=== PATIENT | female | born 1975 | race African-American/Black ===

== ENCOUNTER 2018-02-18 18:04 | Inpatient (IN) | payer BC ==
--- NOTE | 2018-02-18 18:27 | PDOC ---
Rapid Medical Evaluation Time Seen by Provider: 02/18/18 18:22 Medical Evaluation: Allergies Allergy/AdvReac Type Severity Reaction Status Date / Time No Known Allergies Allergy Verified 02/18/18 18:22 02/18/18 18:22 42 year old female with history of uterine fibroids (s/p myomectomy, complicated by uterine aneurysm, required transfusion at that time) who went to Urgent Care today for five days of shortness of breath and coughing. CXR showed clear lungs. Hgb 7.3/26. No vaginal bleeding or blood in the stool. Referred to ED for possible transfusion. -Repeat CBC, CMP, PT/INR, T&S -To Main ED for further evaluation Discharge Disposition - Diagnosis Symptomatic anemia - Referrals - Patient Instructions - Post Discharge Activity
--- NOTE | 2018-02-18 18:53 | PDOC ---
History of Present Illness - General Chief Complaint: Revisit, Lab Variance Stated Complaint: BLOOD TRANSFUSION Time Seen by Provider: 02/18/18 18:22 - History of Present Illness Initial Comments: 02/18/18 18:53 Ms. Saucedo is a 42 yo female w/ pmh of fibroids (s/p myomectomy) who presents for evaluation of 5 day history of shortness of breath. Patient reports she was previously in her normal state of health however the last 5 days has become dyspneic on exertion. She presented to Urgent Care today and reportedly had an H /H of 7.3/26 and was directed here. Denies any vaginal bleeding or blood in stool. Patient had previously taken iron supplements however has stopped taking them electively. The patient denies chest pain, headache and dizziness. Denies fever, chills, nausea, vomit, diarrhea and constipation. Denies dysuria, frequency, urgency and hematuria. Allergies: NKDA Past History - Past Medical History Allergies/Adverse Reactions: Allergies Allergy/AdvReac Type Severity Reaction Status Date / Time No Known Allergies Allergy Verified 02/18/18 18:22 - Suicide/Smoking/Psychosocial Hx Smoking History: Never smoked Review of Systems - Review of Systems Comments:: 02/18/18 19:11 GENERAL/CONSTITUTIONAL: No fever or chills. No weakness. HEAD, EYES, EARS, NOSE AND THROAT: No change in vision. No ear pain or discharge. No sore throat. CARDIOVASCULAR: +Dyspnea on exertion as described. No chest pain RESPIRATORY: No cough, wheezing, or hemoptysis. GASTROINTESTINAL: No nausea, vomiting, diarrhea or constipation. GENITOURINARY: No dysuria, frequency, or change in urination. MUSCULOSKELETAL: No joint or muscle swelling or pain. No neck or back pain. SKIN: No rash NEUROLOGIC: No headache, vertigo, loss of consciousness, or change in strength/ sensation. ENDOCRINE: No increased thirst. No abnormal weight change HEMATOLOGIC/LYMPHATIC: No anemia, easy bleeding, or history of blood clots. ALLERGIC/IMMUNOLOGIC: No hives or skin allergy. *Physical Exam - Vital Signs Last Vital Signs Temp Pulse Resp BP Pulse Ox 98.7 F 94 H 19 138/91 98 02/18/18 18:22 02/18/18 18:22 02/18/18 18:22 02/18/18 18:22 02/18/18 18:22 - Physical Exam Comments: 02/18/18 19:11 GENERAL: Awake, alert, and fully oriented, in no acute distress HEAD: No signs of trauma, normocephalic, atraumatic EYES: PERRLA, EOMI, sclera anicteric, conjunctiva clear ENT: Auricles normal inspection, hearing grossly normal, nares patent, oropharynx clear without exudates. Moist mucosa NECK: Normal ROM, supple, no lymphadenopathy, JVD, or masses LUNGS: No distress, speaks full sentences, clear to auscultation bilaterally HEART: Regular rate and rhythm, normal S1 and S2, no murmurs, rubs or gallops, peripheral pulses normal and equal bilaterally. ABDOMEN: Soft, nontender, normoactive bowel sounds. No guarding, no rebound. No masses EXTREMITIES: Normal inspection, Normal range of motion, no edema. No clubbing or cyanosis. NEUROLOGICAL: Cranial nerves II through XII grossly intact. Normal speech, normal gait, no focal sensorimotor deficits SKIN: Warm, Dry, normal turgor, no rashes or lesions noted. ED Treatment Course - LABORATORY CBC & Chemistry Diagram: 02/18/18 18:50 02/18/18 19:55 Medical Decision Making - Medical Decision Making 02/18/18 20:55 Ms. Saucedo is a 42 yo female w/ pmh as described who presents for evaluation of dyspnea on exertion with prior dx today at urgent care of anemia. Anemia confirmed as below at 7.6/27.2. Given patient's symptomatic status will order 2 units prbc's and admit. 02/18/18 21:[address] Delgado (admits for PCP Dr. Lazara Crow) who would like patient to go to hospitalist for prompt evaluation. Hospitalist paged. Laboratory Results - last 24 hr 02/18/18 02/18/18 02/18/18 18:50 18:50 18:50 WBC 9.3 RBC 4.62 Hgb 7.6 L Hct 27.2 L MCV 58.8 L MCH 16.5 L MCHC 28.0 L RDW 21.0 H Plt Count 435 H MPV 9.4 Absolute Neuts (auto) 4.8 Neutrophils % 51.1 Lymphocytes % 33.7 Monocytes % 11.8 H Eosinophils % 2.3 Basophils % 1.1 Nucleated RBC % 0 PT with INR 13.00 INR 1.15 H Sodium Cancelled Potassium Cancelled Chloride Cancelled Carbon Dioxide Cancelled Anion Gap Cancelled BUN Cancelled Creatinine Cancelled Creat Clearance w eGFR Cancelled Random Glucose Cancelled Calcium Cancelled Total Bilirubin Cancelled AST Cancelled ALT Cancelled Alkaline Phosphatase Cancelled Creatine Kinase Troponin I Total Protein Cancelled Albumin Cancelled Blood Type Antibody Screen Crossmatch 02/18/18 02/18/18 02/18/18 18:50 19:21 19:25 WBC RBC Hgb Hct MCV MCH MCHC RDW Plt Count MPV Absolute Neuts (auto) Neutrophils % Lymphocytes % Monocytes % Eosinophils % Basophils % Nucleated RBC % PT with INR INR Sodium Potassium Chloride Carbon Dioxide Anion Gap BUN Creatinine Creat Clearance w eGFR Random Glucose Calcium Total Bilirubin AST ALT Alkaline Phosphatase Creatine Kinase Cancelled Troponin I Cancelled Total Protein Albumin Blood Type Cancelled A POSITIVE Antibody Screen Cancelled Negative Crossmatch See Detail 02/18/18 19:55 WBC RBC Hgb Hct MCV MCH MCHC RDW Plt Count MPV Absolute Neuts (auto) Neutrophils % Lymphocytes % Monocytes % Eosinophils % Basophils % Nucleated RBC % PT with INR INR Sodium 141 Potassium Chloride 108 H Carbon Dioxide 24 Anion Gap 9 BUN 11 Creatinine 0.8 Creat Clearance w eGFR > 60 Random Glucose 97 Calcium 8.6 Total Bilirubin 0.5 AST ALT Alkaline Phosphatase Creatine Kinase Troponin I Total Protein 7.8 Albumin 3.4 Blood Type Antibody Screen Crossmatch *DC/Admit/Observation/Transfer Diagnosis at time of Disposition: Symptomatic anemia - Discharge Dispostion Decision to Admit order: Yes - Referrals Referrals: Lazara Crow MD [Primary Care Provider] - - Patient Instructions - Post Discharge Activity
[2018-02-18 19:15] LABS: BASO % 1.1 % (0-2.0); EOS % 2.3 % (0-4.5); HEMATOCRIT 27.2 % (32.4-45.2); HEMOGLOBIN 7.6 GM/dL (10.7-15.3); LYMPH % 33.7 % (8-40); MEAN CELL VOLUME 58.8 fl (80-96); MEAN PLT VOLUME 9.4 fl (7.5-11.1); MONO % 11.8 % (3.8-10.2); NEUT % 51.1 % (42.8-82.8); PLATELET COUNT 435 K/MM3 (134-434); RBC 4.62 M/mm3 (3.60-5.2); WHITE BLOOD COUNT 9.3 K/mm3 (4.0-10.0)
[2018-02-18 19:32] LABS: MCH 16.5 pg (25.7-33.7)
[2018-02-18 19:47] LABS: INR 1.15 (0.82-1.09)
--- NOTE | 2018-02-18 20:06 | PDOC ---
Attending Attestation - Resident Resident Name: Silverio Blakely - ED Attending Attestation I have performed the following: I have examined & evaluated the patient, The case was reviewed & discussed with the resident, I agree w/resident's findings & plan, Exceptions are as noted - Physicial Exam PE: 02/18/18 20:55 *Physical Exam General Appearance: Yes: Appropriately Dressed. No: Apparent Distress, Intoxicated HEENT: positive: EOMI, ZAIRA, Normal ENT Inspection, Normal Voice, TMs Normal, Pharynx Normal. negative: Pale Conjunctivae, Photophobia, Scleral Icterus (R), Scleral Icterus (L) Neck: positive: Trachea midline, Normal Thyroid, Supple. negative: Tender, Rigid, Carotid bruit, Stridor, Lymphadenopathy (R), Lymphadenopathy (L), Thyromegaly Respiratory/Chest: positive: Lungs Clear, Normal Breath Sounds. negative: Chest Tender, Respiratory Distress, Accessory Muscle Use, Labored Respiration, RES, Crackles, Rales, Rhonchi, Stridor, Wheezing, Dullness Cardiovascular: positive: Regular Rhythm, Regular Rate, S1, S2. negative: Edema , JVD, Murmur, Bradycardia, Tachycardia Vascular Pulses: Dorsalis-Pedis (R): 2+, Doralis-Pedis (L): 2+ Gastrointestinal/Abdominal: positive: Normal Bowel Sounds, Flat, Soft. negative : Tender, Organomegaly, Pulsatile Mass, Increased Bowel Sounds, Decreased BS, Distended, Guarding, Rebound, Hernia, Hepatomegaly, Spleenomegaly Lymphatic: negative: Adenopathy, Tenderness Musculoskeletal: positive: Normal Inspection. negative: CVA Tenderness, Decreased Range of Motion Extremity: positive: Normal Capillary Refill, Normal Inspection, Normal Range of Motion, Pelvis Stable. negative: Tender, Pedal Edema, Swelling, Erythema Integumentary: positive: Normal Color, Dry, Warm. 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 negative: EOM Palsy, Facial Droop, Sensory Deficit - Medical Decision Making 02/18/18 20:55 Pt to be admitted to [facility] for transfusion. <Trevor Ingram - Last Filed: 02/18/18 20:55> - HPI HPI: 02/18/18 20:49 The patient is a 42 year old female, with a significant past medical history of fibroids (s/p myomectomy), who presents to the emergency department with, 5 days of dyspnea upon exertion. As per patient, she went to urgent care today where she was told benson H/H was 7.3/26 and was advised to report to the ED for further evaluation. She denies recent fevers, chills, headache or dizziness. She denies recent nausea, vomit, diarrhea or constipation. She denies any bloody stool. She denies recent dysuria, frequency, urgency or hematuria. She denies recent chest pain. Allergies: NKA Past surgical history: Myomectomy. Primary Care Physician: Dr. Crow <Angelika Mcnally - Last Filed: 02/18/18 22:00> Heart Score/ECG Review #1 02/18/18 21:58 EKG performed at: 18 February 2018 at 21:49:33 Vent Rate 89 bpm NJ interval 212 ms QRS duration 88 ms QT/QTc 396/481 ms P-R-T axes 70 72 57 Sinus rhythm with 1st degree AV block. Cannot rule out Anterior infarct, age undetermined. Abnormal ECG. <Angelika Mcnally - Last Filed: 02/18/18 22:00> Attestations - Attestations 02/18/18 20:49 Documentation prepared by Angelika Mcnally, acting as medical csr for Trevor Ingram DO. <Angelika Mcnally - Last Filed: 02/18/18 22:00>
[2018-02-18 20:31] LABS: ALBUMIN 3.4 g/dl (3.4-5.0); ANION GAP 9 (8-16); BILIRUBIN,TOTAL 0.5 mg/dL (0.2-1.0); BLOOD UREA NITROGEN 11 mg/dL (7-18); CALCIUM 8.6 mg/dL (8.5-10.1); CHLORIDE 108 mmol/L (98-107); CO2 24 mmol/L (21-32); CREATININE 0.8 mg/dL (0.55-1.02); GLUCOSE,RANDOM 97 mg/dL (74-106); SODIUM 141 mmol/L (136-145); TOT PROT 7.8 g/dl (6.4-8.2)
[2018-02-18 21:11] LABS: ALK PHOS 65 U/L (45-117); SGPT/ALT 67 U/L (12-78)
[2018-02-18 21:18] LABS: SGOT/AST 70 U/L (15-37)
[2018-02-18 21:40] LABS: ANISOCYTOSIS 2+
--- NOTE | 2018-02-18 22:43 | PN ---
Teaching Attending Note Name of Resident: Mono Lin ATTENDING PHYSICIAN STATEMENT I saw and evaluated the patient. I reviewed the resident's note and discussed the case with the resident. I agree with the resident's findings and plan as documented. SUBJECTIVE: Patient is a 42 year old woman with pmh of fibroids (s/p myomectomy) who presents for evaluation of five day history of shortness of breath. She reports dyspnea on exertion. She went to an Urgent Care Center and was found to have H/ H of 7.3/26 and was sent to the ER. She denies any vaginal bleeding, blood in stool or melena. Patient had previously taken iron supplements however has stopped taking them electively. She's never had an EGD/colonoscopy, is not on control pills and does is not trying to have children. LMP February 08, 2018. OBJECTIVE: Obese, and in no acute distress. Vital Signs Period Temp Pulse Resp BP Sys/Chauhan Pulse Ox Last 24 Hr 98.7 F 94 19 138/91 98 HEENT: No Jaundice, pallor; no eye redness or discharge, PERRLA, EOMI. Normocephalic, atraumatic. External ears are normal and hearing is grossly intact. No nasal discharge. Neck: Supple, nontender. No palpable adenopathy or thyromegaly. No JVD Chest: Good effort. Clear to auscultation and percussion. Heart: Regular. No S3, rub or murmur Abdomen: Not distended, soft, nontender and no HSM. No rebound or guarding. Normoactive bowel sounds. Ext: Peripheral pulses intact. No leg edema. Skin: Warm and dry. No petechiae, rash or ecchymosis. Neuro: Alert. Oriented x3. CN 2-12 grossly intact. Sensation grossly intact in all four extremities and DTR are symmetric. Home Medications Medication Instructions Recorded NK [No Known Home Medication] 02/18/18 Abnormal Lab Results 02/18/18 02/18/18 02/18/18 18:50 18:50 19:25 Hgb 7.6 L Hct 27.2 L MCV 58.8 L MCH 16.5 L MCHC 28.0 L RDW 21.0 H Plt Count 435 H Monocytes % 11.8 H INR 1.15 H Chloride AST Crossmatch See Detail 02/18/18 19:55 Hgb Hct MCV MCH MCHC RDW Plt Count Monocytes % INR Chloride 108 H AST 70 H Crossmatch ASSESSMENT AND PLAN: 1. Severe low MCV anemia - Features consistent with iron deficiency anemia likely due to menorrhagia associated with fibroids. While she has symptoms of anemia, the suddenness of SOB and cough 5 days ago compels us to rule out pulmonary embolism. Will get CTPA. She has no infiltrates on CXR. Her EKG shows nonspecific T wave inversion V1 and V2 - will get follow up EKG and troponin to rule out ACS and monitor her on telemetry. The ER has already started transfusion of PRBC. Subsequently she will need IV Venofer 500 mg x 2 doses and pelvic sonogram. 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 Stool sent for occult blood is pending and we will get iron studies. 2. DVT prophylaxis - Heparin 5000u sq tid 3. Advance directives - Full code
[2018-02-18] MEDS ORDERED: IRON SUCROSE INJECTION 500 MG in SODIUM CHLORIDE 225 ML IVPB ONE (23:37)
[2018-02-19 01:22] VITALS: BMI 39.4
--- NOTE | 2018-02-19 02:05 | HP ---
CHIEF COMPLAINT: SOB PCP: Dr. Crow HISTORY OF PRESENT ILLNESS: The patient is a 42 yo f w/ PMH Uterine fibroids s/p myomectomy x2 who presents to the ED c/o a 5 day history of dyspnea on exertion. The patient describes feeling short of breath when walking or when ascending stairs. She associates these symptoms with a nonproductive cough and palpitations on exertion. The patient went to an urgent care center, where she was found to have a Hb of 7.3 and sent to the ED. LMP 02/08, has been regular and of normal duration. Usually uses 4 heavy pads per day. The patient denies fever, chills, chest pain, abdominal pain, constipation, diarrhea, OCP use, estrogen supplementation, prolonged immobilization, vaginal bleeding, BRBPR. 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 Family History: Mother with aortic aneurysm Allergies No Known Allergies Allergy (Verified 02/18/18 18:22) HOME MEDICATIONS: Home Medications Medication Instructions Recorded NK [No Known Home Medication] 02/18/18 REVIEW OF SYSTEMS CONSTITUTIONAL: Absent: fever, chills, diaphoresis, generalized weakness, malaise, loss of appetite, weight change HEENT: Absent: rhinorrhea, nasal congestion, throat pain, throat swelling, difficulty swallowing, mouth swelling, ear pain, eye pain, visual changes CARDIOVASCULAR: Absent: chest pain, syncope, irregular heart rate, lightheadedness, peripheral edema RESPIRATORY: Absent: orthopnea, wheezing, stridor, hemoptysis GASTROINTESTINAL: Absent: abdominal pain, abdominal distension, nausea, vomiting, diarrhea, constipation, melena, hematochezia GENITOURINARY: Absent: dysuria, frequency, urgency, hesitancy, hematuria, flank pain, genital pain MUSCULOSKELETAL: Absent: myalgia, arthralgia, joint swelling, back pain, neck pain SKIN: Absent: rash, itching, pallor HEMATOLOGIC/IMMUNOLOGIC: Absent: easy bleeding, easy bruising, lymphadenopathy, frequent infections ENDOCRINE: Absent: unexplained weight gain, unexplained weight loss, heat intolerance, cold intolerance NEUROLOGIC: Absent: headache, focal weakness or paresthesias, dizziness, unsteady gait, seizure, mental status changes, bladder or bowel incontinence PSYCHIATRIC: Absent: anxiety, depression, suicidal or homicidal ideation, hallucinations. PHYSICAL EXAMINATION Vital Signs - 24 hr 02/18/18 02/18/18 02/18/18 18:22 21:34 23:20 Temperature 98.7 F Pulse Rate 94 H Pulse Rate [ 97 H Apical] Respiratory 19 18 Rate Blood Pressure 138/91 Blood Pressure 127/70 [Left Arm] O2 Sat by Pulse 98 96 99 Oximetry (%) 02/19/18 00:32 Temperature Pulse Rate Pulse Rate [ Apical] Respiratory 18 Rate Blood Pressure Blood Pressure [Left Arm] O2 Sat by Pulse 99 Oximetry (%) GENERAL: Awake, alert, and fully oriented, in no acute distress. HEAD: Normal with no signs of trauma. EYES: Pupils equal, round and reactive to light, extraocular movements intact, sclera anicteric, conjunctival pallor noted. No lid lag. EARS, NOSE, THROAT: oropharynx clear without exudates. Moist mucous membranes. Mucosal pallor noted NECK: Normal range of motion, supple without lymphadenopathy, JVD, or masses. LUNGS: Breath sounds equal, clear to auscultation bilaterally. No wheezes, and no crackles. No accessory muscle use. HEART: Regular rate and rhythm, normal S1 and S2 without murmur, rub or gallop. ABDOMEN: Soft, nontender, not distended, normoactive bowel sounds, no guarding, no rebound, no masses. No hepatomegaly or splenomegaly. LOWER EXTREMITIES: 2+ pulses, warm, well-perfused. No calf tenderness. No peripheral edema. NEUROLOGICAL: Cranial nerves II-X intact. Normal speech. strength 5/5 in all 4 extremities, sensation preserved SKIN: Warm, dry, normal turgor, no rashes or lesions noted, normal capillary refill. Laboratory Results - last 24 hr 02/18/18 02/18/18 02/18/18 18:50 18:50 18:50 WBC 9.3 RBC 4.62 Hgb 7.6 L Hct 27.2 L MCV 58.8 L MCH 16.5 L MCHC 28.0 L RDW 21.0 H Plt Count 435 H MPV 9.4 Absolute Neuts (auto) 4.8 Neutrophils % 51.1 Lymphocytes % 33.7 Monocytes % 11.8 H Eosinophils % 2.3 Basophils % 1.1 Nucleated RBC % 0 Hypochromia 3+ Anisocytosis 2+ Microcytosis 3+ PT with INR 13.00 INR 1.15 H Sodium Cancelled Potassium Cancelled Chloride Cancelled Carbon Dioxide Cancelled Anion Gap Cancelled BUN Cancelled Creatinine Cancelled Creat Clearance w eGFR Cancelled Random Glucose Cancelled Calcium Cancelled Total Bilirubin Cancelled AST Cancelled ALT Cancelled Alkaline Phosphatase Cancelled Creatine Kinase Troponin I Total Protein Cancelled Albumin Cancelled Serum , Qual Stool Occult Blood Blood Type Antibody Screen Crossmatch 02/18/18 02/18/18 02/18/18 18:50 19:21 19:25 WBC RBC Hgb Hct MCV MCH MCHC RDW Plt Count MPV Absolute Neuts (auto) Neutrophils % Lymphocytes % Monocytes % Eosinophils % Basophils % Nucleated RBC % Hypochromia Anisocytosis Microcytosis PT with INR INR Sodium Potassium Chloride Carbon Dioxide Anion Gap BUN Creatinine Creat Clearance w eGFR Random Glucose Calcium Total Bilirubin AST ALT Alkaline Phosphatase Creatine Kinase Cancelled Troponin I Cancelled Total Protein Albumin Serum , Qual Stool Occult Blood Blood Type Cancelled A POSITIVE Antibody Screen Cancelled Negative Crossmatch See Detail 02/18/18 02/18/18 02/18/18 19:55 21:00 22:17 WBC RBC Hgb Hct MCV MCH MCHC RDW Plt Count MPV Absolute Neuts (auto) Neutrophils % Lymphocytes % Monocytes % Eosinophils % Basophils % Nucleated RBC % Hypochromia Anisocytosis Microcytosis PT with INR INR Sodium 141 Potassium 5.0 Chloride 108 H Carbon Dioxide 24 Anion Gap 9 BUN 11 Creatinine 0.8 Creat Clearance w eGFR > 60 Random Glucose 97 Calcium 8.6 Total Bilirubin 0.5 AST 70 H ALT 67 Alkaline Phosphatase 65 Creatine Kinase 111 Troponin I < 0.02 Total Protein 7.8 Albumin 3.4 Serum , Qual Negative Stool Occult Blood Negative Blood Type Antibody Screen Crossmatch Radiology: CTA: bilateral pulmonary embolisms in the lower lobes and right upper lobe EKG: NSR @89, t wave inversions in v1 and v2; no old EKG to compare ASSESSMENT/PLAN: The patient is a 42 yo f w/ PMH uterine fibroids who was sent to the ED from urgent care for a hemoglobin of 7.2 found to have b/l PE. #SOB, palpitations and [place] likely 2/2 pulmonary embolism (unprovoked) -CTA positive -will administer Eliquis 10mg BID -Pulmonolgy to evaluate PE -Hematology/ Oncology for hypercoagulable workup #Anemia -physician gynecologist cosult for possible bleeding fibroids -GI consult for posible GIB -s/p 1 u prbc in ED -will admin 500mg iron IV #EKG changes -rpt EKG in AM -trop negative x1, will trend -echo in AM #FEN -no fluids indicated -lytes WNL, replete PRN -regular diet #Prophy -on eliquis for AC #Dispo -admit tele inpatient Visit type - Emergency Visit Emergency Visit: Yes ED Registration Date: 02/19/18 Care time: The patient presented to the Emergency Department on the above date and was hospitalized for further evaluation of their emergent condition. - New Patient This patient is new to me today: Yes Date on this admission: 02/19/18 - Critical Care Critical Care patient: No Hospitalist Screening - Colonoscopy Questionnaire Colonoscopy Questionnaire: Colonoscopy Questionnaire - Patient: 50 - 75 years old and never had a screening colonoscopy: No History of colon or rectal polyps, or CA: Unknown History of IBD, Crohn's disease or UC: Unknown History of abdominal radiation therapy as a child: Unknown - Relative: 1 with colon or rectal CA, or polyps at age 60 or younger: Unknown Colon or rectal CA diagnosed at age 45 or younger: Unknown Multiple relatives with colon or rectal CA: Unknown - Outcome: Screening Result: Negative Screen
[2018-02-19] MEDS: APIXABAN 5 MG TABLET PO SCH ×3 (03:16→21:53)
[2018-02-19 10:32] LABS: HEMATOCRIT 30.6 % (32.4-45.2); MCHC 29.3 g/dl (32.0-36.0); MEAN CELL VOLUME 60.1 fl (80-96); MEAN PLT VOLUME 8.7 fl (7.5-11.1); PLATELET COUNT 420 K/MM3 (134-434); RBC 5.09 M/mm3 (3.60-5.2); RDW 22.9 % (11.6-15.6); WHITE BLOOD COUNT 8.2 K/mm3 (4.0-10.0)
[2018-02-19 10:36] LABS: MCH 17.6 pg (25.7-33.7)
[2018-02-19 11:22] LABS: ALBUMIN 3.3 g/dl (3.4-5.0); ANION GAP 7 (8-16); BILIRUBIN,TOTAL 0.7 mg/dL (0.2-1.0); BLOOD UREA NITROGEN 8 mg/dL (7-18); CALCIUM 8.6 mg/dL (8.5-10.1); CHLORIDE 106 mmol/L (98-107); CO2 27 mmol/L (21-32); CREATININE 0.8 mg/dL (0.55-1.02); GLUCOSE,RANDOM 103 mg/dL (74-106); MAGNESIUM 2.1 mg/dL (1.8-2.4); PHOSPHOROUS 2.6 mg/dL (2.5-4.9); POTASSIUM 4.4 mmol/L (3.5-5.1); SGOT/AST 31 U/L (15-37); SGPT/ALT 57 U/L (12-78); SODIUM 140 mmol/L (136-145); TOT PROT 7.5 g/dl (6.4-8.2)
[2018-02-19 11:23] LABS: ALK PHOS 66 U/L (45-117)
--- NOTE | 2018-02-19 13:00 | CON.PULM ---
Consult Consult Specialty:: PULMONARY Referred by:: LEISA Mtz Reason for Consultation:: pulmonary embolism - History of Present Illness Chief Complaint: shortness of breath History of Present Illness: 42yo female with h/o uterine fibroids s/p myomectomy who was admitted with worsening shortness of breath x 1 week. Denies chest pain but with palpitations. Found to have bilateral pulmonary emboli on CTA imaging. She denies any prior history of VTE. No family history of clots. 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 No recent long car or plane rides. She does report hitting her right leg last week but no bruising. No history of miscarriages. - History Source History Provided By: Patient, Medical Record Limitations to Obtaining History: No Limitations - Past Medical History ...LMP: 02/08/18 ...: No - Alcohol/Substance Use Hx Alcohol Use: No - Smoking History Smoking history: Never smoked Home Medications - Allergies Allergies/Adverse Reactions: Allergies Allergy/AdvReac Type Severity Reaction Status Date / Time No Known Allergies Allergy Verified 02/18/18 18:22 - Home Medications Home Medications: Ambulatory Orders NK [No Known Home Medication] 02/18/18 Review of Systems - Review of Systems Constitutional: denies: Chills, Fever Eyes: denies: Recent Change in Vision HENT: denies: Nasal Congestion, Throat Pain Neck: denies: Stiffness, Tenderness Cardiovascular: reports: Palpitations, Shortness of Breath. denies: Chest Pain Respiratory: reports: SOB on Exertion. denies: Cough, Hemoptysis, Wheezing Gastrointestinal: denies: Abdominal Pain, Nausea, Vomiting Genitourinary: denies: Dysuria, Hematuria Neurological: denies: Dizziness, Headache Endocrine: denies: Unexplained Weight Loss Physical Exam Vital Sings: Vital Signs Temperature 98.3 F 02/19/18 08:09 Pulse Rate 80 02/19/18 08:09 Respiratory Rate 20 02/19/18 08:11 Blood Pressure 132/77 02/19/18 08:09 O2 Sat by Pulse Oximetry (%) 97 02/19/18 08:11 Constitutional: Yes: No Distress, Calm Eyes: Yes: Conjunctiva Clear, EOM Intact HENT: Yes: Atraumatic, Normocephalic Neck: Yes: Supple, Trachea Midline Cardiovascular: Yes: Regular Rate and Rhythm Respiratory: Yes: Regular, CTA Bilaterally ...Clubbing: No Gastrointestinal: Yes: Normal Bowel Sounds, Soft, Abdomen, Obese. No: Tenderness Edema: Yes (trace) Neurological: Yes: Alert, Oriented Psychiatric: Yes: Alert, Oriented Labs: CBC, BMP 02/19/18 10:20 02/19/18 10:20 Imaging - Results Cat Scan: Report Reviewed, Image Reviewed (bilateral pulmonary emboli) Problem List - Problems (1) Pulmonary emboli Code(s): I26.99 - OTHER PULMONARY EMBOLISM WITHOUT ACUTE COR PULMONALE (2) Symptomatic anemia Code(s): D64.9 - ANEMIA, UNSPECIFIED Assessment/Plan Acute Pulmonary Emboli Anemia - echocardiogram to evaluate right heart - lower extremity dopplers to r/o DVT/clot burden - O2 as needed - can start oral anticoagulation if right heart without evidence of strain - will need to anticoagulate for at least 6 months for unprovoked VTE Thank you for this consult Humble Fernandes MD
--- NOTE | 2018-02-19 15:06 | EKG ---
Test Reason : Blood Pressure : / mmHG Vent. Rate : 089 BPM Atrial Rate : 089 BPM P-R Int : 212 ms QRS Dur : 088 ms QT Int : 396 ms P-R-T Axes : 070 072 057 degrees QTc Int : 481 ms SINUS RHYTHM WITH 1ST DEGREE A-V BLOCK CANNOT RULE OUT ANTERIOR INFARCT , AGE UNDETERMINED ABNORMAL ECG WHEN COMPARED WITH ECG OF 31-JUL-2006 22:52, [place] INTERVAL HAS INCREASED Confirmed by MD Murali, Felice ([id number]) on 02/19/2018 3:06:12 PM Referred By: Confirmed By:Felice Carrion MD
--- NOTE | 2018-02-19 15:07 | CONSULT ---
Consult Consult Specialty:: Hematology - History of Present Illness History of Present Illness: Ms. Saucedo is a 42 yo female w/ pmh of fibroids (s/p myomectomy) who presents for evaluation of 5 day history of shortness of breath. Patient reports she was previously in her normal state of health however the last 5 days has become dyspneic on exertion. She presented to Urgent Care today and reportedly had an H /H of 7.3/26 and was directed here. Denies any vaginal bleeding or blood in stool. Patient had previously taken iron supplements however has stopped taking them electively. CTA with PE. US LE pending. Pt seen and examined. 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 No OCPS no hormonal therapy no prolonged travel no prolonged immobilization - History Source History Provided By: Patient, Family Member, Medical Record - Past Medical History ...LMP: 02/08/18 ...: No - Alcohol/Substance Use Hx Alcohol Use: No - Smoking History Smoking history: Never smoked Home Medications - Allergies Allergies/Adverse Reactions: Allergies Allergy/AdvReac Type Severity Reaction Status Date / Time No Known Allergies Allergy Verified 02/18/18 18:22 - Home Medications Home Medications: Ambulatory Orders NK [No Known Home Medication] 02/18/18 Physical Exam Vital Signs: Vital Signs Temperature 98.3 F 02/19/18 08:09 Pulse Rate 80 02/19/18 08:09 Respiratory Rate 20 02/19/18 08:11 Blood Pressure 132/77 02/19/18 08:09 O2 Sat by Pulse Oximetry (%) 97 02/19/18 08:11 Constitutional: Yes: Well Nourished, No Distress, Calm Eyes: Yes: Conjunctiva Clear, EOM Intact HENT: Yes: Atraumatic, Normocephalic Neck: Yes: Supple, Trachea Midline Cardiovascular: Yes: Regular Rate and Rhythm Respiratory: Yes: Regular, CTA Bilaterally Gastrointestinal: Yes: Normal Bowel Sounds, Soft, Abdomen, Obese Breast(s): Yes: WNL Musculoskeletal: Yes: WNL Extremities: Yes: WNL Labs: CBC, BMP 02/19/18 10:20 02/19/18 10:20 Imaging - Results Cat Scan: Report Reviewed, Image Reviewed Assessment/Plan PE: was started on eliquis c/w 10mg bid [id number] by 5mg bid etiology: seems unprovoked. US LE r/o DVT Advised pt for age appropriate ca screening. GI note reviewed, would at least wait for the "loading dose of Eliquis" is over prior to interruption of AC for procedures, unless HD instability/clinical evidence of bleeding. explained to the pt. d/w pt in detail. Anemia: MCV points chronicity Fe-def Repeat Venofer tomorrow Anemia w/u ensure stability of CBC
--- NOTE | 2018-02-19 15:53 | CON.GI ---
Consult Consult Specialty:: Dr. De Guzman for Dr. Wells Referred by:: Hospitalist Service Reason for Consultation:: Anemia - History of Present Illness Chief Complaint: I was short of breath and coughing History of Present Illness: 42F admitted through [facility] ER last night. Was sent by Urgent care when she was found to be anemic. She had a CTA performed in ER revealing B/L PE as well and started on Eliquis early this morning. She gives a history of chronic anemia and having been on TID iron supplement for multiple years. She has never had an upper endoscopy or colonoscopy. She was guaiac negative from a specimen sent from the ER. She denies focal GI complaints. There has been no rectal bleeding or melena / unintentional weight loss. Her last menstrual period was earlier this week and it usually lasts 6 days with passage of clots at times. she denies use of OCP's. She denies prolonged travel (flew to [place] recently , 45 min flight) There is no family history of colorectal cancer or other GI malignancy. She received 1 U PRBC. 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 Last in 2013) ...LMP: 02/08/18 ...: No - Alcohol/Substance Use Hx Alcohol Use: No - Smoking History Smoking history: Never smoked Home Medications - Allergies Allergies/Adverse Reactions: Allergies Allergy/AdvReac Type Severity Reaction Status Date / Time No Known Allergies Allergy Verified 02/18/18 18:22 - Home Medications Home Medications: Ambulatory Orders NK [No Known Home Medication] 02/18/18 Family Disease History - Family Disease History Family Disease History: Other: Father (Alive: healthy), Mother (: Aortic aneurysm age 62), Brother (4, healthy), Sister (2, healthy), Son (None), Daughter (None) Other Family History: No family history of colorectal cancer or other GI malignancy Review of Systems - Review of Systems Constitutional: denies: Chills, Fever, Malaise, Night Sweats, Unintentional Wgt. Loss Cardiovascular: denies: Chest Pain Respiratory: reports: Cough, SOB Hematology/Lymphatic: denies: Easily Bruised Physical Exam-GI Vital Signs: Vital Signs Temperature 98.3 F 02/19/18 08:09 Pulse Rate 80 02/19/18 08:09 Respiratory Rate 20 02/19/18 08:11 Blood Pressure 132/77 02/19/18 08:09 O2 Sat by Pulse Oximetry (%) 97 02/19/18 08:11 Constitutional: Yes: Calm Eyes: No: Sclera Icterus Cardiovascular: Yes: Regular Rate and Rhythm. No: Murmur Respiratory: Yes: CTA Bilaterally Gastrointestinal Inspection: No: Distention ...Auscultate: Yes: Normoactive Bowel Sounds ...Palpate: No: Hepatomegaly, Splenomegaly ...Percussion: No: Tympanitic ...Rectal Exam: Yes: Other (Prototype Technician present: no external lesions, no masses, guaiac negative light brown stool) Edema: No (No LE edema) Neurological: Yes: Alert, Oriented Labs: CBC, BMP 02/19/18 10:20 02/19/18 10:20 INR, PTT INR 1.15 (0.82-1.09) H 02/18/18 18:50 Problem List - Problems (1) Symptomatic anemia Assessment/Plan: Improved: received 1 U PRBC and receiving IV iron Being evaluated by heme. Hypercoag w/u Will defer to hematology. When anticoagulation can be held for procedures, I discussed EGD and colonoscopy with Ms. Saucedo for further intraluminal evluation to exclude GI source. Asymptomatic from GI standpoint and guaiac negative x 2 this admission. I did given Ms. Saucedo my card to arrange outpatient follow-up. Ordered abdominal US given elevated LFTs Code(s): D64.9 - ANEMIA, UNSPECIFIED
[2018-02-19 21:08] LABS: HEMATOCRIT 28.4 % (32.4-45.2); HEMOGLOBIN 8.2 GM/dL (10.7-15.3); MEAN CELL VOLUME 60.6 fl (80-96); MEAN PLT VOLUME 9.2 fl (7.5-11.1); PLATELET COUNT 421 K/MM3 (134-434); RBC 4.69 M/mm3 (3.60-5.2); RDW 22.9 % (11.6-15.6); WHITE BLOOD COUNT 9.8 K/mm3 (4.0-10.0)
[2018-02-19 21:12] LABS: MCH 17.6 pg (25.7-33.7)
[2018-02-20 06:06] LABS: SERUM IRON SATURATION 96 % (15-55); TOTAL IRON BINDING CAPACITY 588 ug/dL (250-450); UIBC 23 ug/dL (131-425)
--- NOTE | 2018-02-20 07:59 | HOSP ---
Physical Examination Vital Signs: Vital Signs Temperature 98.3 F 02/20/18 02:00 Pulse Rate 87 02/20/18 06:00 Respiratory Rate 20 02/20/18 06:00 Blood Pressure 131/85 02/20/18 06:00 O2 Sat by Pulse Oximetry (%) 97 02/19/18 20:15 Labs: CBC, BMP 02/19/18 20:25 02/19/18 10:20
[2018-02-20] MEDS: APIXABAN 5 MG TABLET PO SCH ×2 (09:36→21:12)
[2018-02-20] MEDS ORDERED: IRON SUCROSE INJECTION 300 MG in SODIUM CHLORIDE 235 ML IVPB ONE (10:00)
--- NOTE | 2018-02-20 11:36 | PN ---
Progress Note, Physician History of Present Illness: PULMONARY ALERT,FEELING BETTER,-SOB,-CP. LOWER EXT DUPLEX +DVT LLE - Current Medication List Current Medications: Active Medications Apixaban (Eliquis -) 10 mg PO BID MARIZOL Last Admin: 02/20/18 09:36 Dose: 10 mg - Objective Vital Signs: Vital Signs Temperature 98.5 F 02/20/18 07:46 Pulse Rate 90 02/20/18 07:46 Respiratory Rate 18 02/20/18 07:53 Blood Pressure 134/80 02/20/18 07:46 O2 Sat by Pulse Oximetry (%) 97 02/20/18 07:53 Constitutional: Yes: Well Nourished, Calm Eyes: Yes: WNL HENT: Yes: WNL Neck: Yes: WNL Cardiovascular: Yes: Pulse Irregular, S1, S2 Extremities: Yes: WNL Edema: No Labs: CBC, BMP Assessment/Plan Problem List - Problems (1) Pulmonary emboli Code(s): I26.99 - OTHER PULMONARY EMBOLISM WITHOUT ACUTE COR PULMONALE (2) Symptomatic anemia Code(s): D64.9 - ANEMIA, UNSPECIFIED 3 DVT LLE Assessment/Plan Acute Pulmonary Emboli LLE DVT Anemia - O2 as needed - eliquis - will need to anticoagulate for at least 6 months for unprovoked VTE - w/u for hypercoagulable stated as outpatient - monitor h+h - normal tranfusion threshold DR FORREST
--- NOTE | 2018-02-20 12:07 | PN ---
Progress Note (short form) - Note Progress Note: Subjective: The patient was seen at the bedside, she has no complaints at this time Left leg DVT identified Current Medications Generic Name Dose Route Start Last Admin Trade Name Ky PRN Reason Stop Dose Admin Apixaban 10 mg 02/19/18 01:45 02/20/18 09:36 Eliquis - PO 10 mg BID MARIZOL Administration Objective: Vital Signs Period Temp Pulse Resp BP Sys/Chauhan Pulse Ox Last 24 Hr 98.3 F-98.8 F 73-98 18-20 111-146/71-88 97-97 Physical Exam: General: NAD, A&Ox3 Lungs: CTA bilaterally Heart: RRR, S1S2 Abd: Soft, non-tender, non-distended. Normoactive bowel sounds Ext: Warm, well-perfused Neuro: CN 2-12 intact CBCD WBC 9.8 K/mm3 (4.0-10.0) 02/19/18 20:25 RBC 4.69 M/mm3 (3.60-5.2) 02/19/18 20:25 Hgb 8.2 GM/dL (10.7-15.3) L 02/19/18 20:25 Hct 28.4 % (32.4-45.2) L 02/19/18 20:25 MCV 60.6 fl (80-96) L 02/19/18 20:25 MCHC 29.0 g/dl (32.0-36.0) L 02/19/18 20:25 RDW 22.9 % (11.6-15.6) H 02/19/18 20:25 Plt Count 421 K/MM3 (134-434) 02/19/18 20:25 MPV 9.2 fl (7.5-11.1) 02/19/18 20:25 CMP Sodium 140 mmol/L (136-145) 02/19/18 10:20 Potassium 4.4 mmol/L (3.5-5.1) 02/19/18 10:20 Chloride 106 mmol/L (98-107) 02/19/18 10:20 Carbon Dioxide 27 mmol/L (21-32) 02/19/18 10:20 Anion Gap 7 (8-16) L 02/19/18 10:20 BUN 8 mg/dL (7-18) 02/19/18 10:20 Creatinine 0.8 mg/dL (0.55-1.02) 02/19/18 10:20 Creat Clearance w eGFR > 60 (>60) 02/19/18 10:20 Random Glucose 103 mg/dL (74-106) 02/19/18 10:20 Calcium 8.6 mg/dL (8.5-10.1) 02/19/18 10:20 Total Bilirubin 0.7 mg/dL (0.2-1.0) D 02/19/18 10:20 AST 31 U/L (15-37) 02/19/18 10:20 ALT 57 U/L (12-78) 02/19/18 10:20 Alkaline Phosphatase 66 U/L (45-117) 02/19/18 10:20 Total Protein 7.5 g/dl (6.4-8.2) 02/19/18 10:20 Albumin 3.3 g/dl (3.4-5.0) L 02/19/18 10:20 CARDIAC ENZYMES Creatine Kinase 111 IU/L (26-192) 02/18/18 19:55 Troponin I < 0.02 ng/ml (0.00-0.05) 02/19/18 10:20 Assessment: This is a 42 year old female with PMHx of uterine fibroids s/p myomectomy, who presented to the ED with [place] Plan: 1) Pulmonary embolism, LLE DVT - Hemodynamically stable - ECHO reviewed with Dr. Fernandes - Continue Eliquis 10mg po bid - Will need 6 months of anticoagulation for unprovoked DVT - Appreciate pulmonary consult 2) Symptomatic Anemia - Symptoms resolved, no longer SOB - Iron studies not accurate, they were drawn after IV venofer given - IV venofer x2 - Discussed with Dr. Yanes, Hct will need to be over 30-32 prior to discharge - Appreciate hematology consult - Appreciate GI consult: negative stool for occult blood, f/u outpatient 3) Uterine fibroids - F/u gathering machine setter consult 4) F/E/N: - Regular diet - Monitor electrolytes 5) Prophylaxis: - On Eliquis 6) Dispo: - Requires continued inpatient care CODE STATUS: FULL CODE Visit type - Emergency Visit Emergency Visit: Yes ED Registration Date: 02/19/18 Care time: The patient presented to the Emergency Department on the above date and was hospitalized for further evaluation of their emergent condition. - New Patient This patient is new to me today: No - Critical Care Critical Care patient: No
[2018-02-20 12:59] LABS: BASO % 0.8 % (0-2.0); EOS % 1.8 % (0-4.5); HEMATOCRIT 28.7 % (32.4-45.2); HEMOGLOBIN 8.3 GM/dL (10.7-15.3); LYMPH % 30.6 % (8-40); MCHC 28.8 g/dl (32.0-36.0); MEAN CELL VOLUME 60.7 fl (80-96); MEAN PLT VOLUME 8.5 fl (7.5-11.1); MONO % 9.6 % (3.8-10.2); NEUT % 57.2 % (42.8-82.8); PLATELET COUNT 385 K/MM3 (134-434); RBC 4.74 M/mm3 (3.60-5.2); RDW 22.5 % (11.6-15.6); WHITE BLOOD COUNT 12.5 K/mm3 (4.0-10.0)
[2018-02-20 13:04] LABS: MCH 17.5 pg (25.7-33.7)
--- NOTE | 2018-02-20 18:19 | PN ---
Progress Note (short form) - Note Progress Note: Constitutional: Yes: Well Nourished, No Distress, Calm Eyes: Yes: Conjunctiva Clear, EOM Intact HENT: Yes: Atraumatic, Normocephalic Neck: Yes: Supple, Trachea Midline Cardiovascular: Yes: Regular Rate and Rhythm Respiratory: Yes: Regular, CTA Bilaterally Gastrointestinal: Yes: Normal Bowel Sounds, Soft, Abdomen, Obese Breast(s): Yes: WNL Musculoskeletal: Yes: WNL Extremities: Yes: WNL Labs: Last Vital Signs Temp Pulse Resp BP Pulse Ox 98.3 F 92 H 18 149/87 97 02/20/18 14:00 02/20/18 14:00 02/20/18 07:53 02/20/18 14:00 02/20/18 07:53 CBC, BMP 02/20/18 12:40 02/19/18 10:20 Current Medications Generic Name Dose Route Start Last Admin Trade Name Freq PRN Reason Stop Dose Admin Apixaban 10 mg 02/19/18 01:45 02/20/18 09:36 Eliquis - PO 10 mg BID MARIZOL Administration DVT PE anemia fibroids On eliquis for CT a/p DEAF INTERPRETER f/u appreciated Hypercoag w/u as an OP
--- NOTE | 2018-02-20 18:26 | CON.OBG ---
Consult Consult Specialty:: Internal Medicine Referred by:: Dr. Mtz Reason for Consultation:: Fibroid uterus, menorrhagia - History of Present Illness Chief Complaint: 42yo with large fibroid uterus and severe anemia, admitted with bilateral pulmonary embolism History of Present Illness: Patient with a known history of uterine fibroids. She states prior h/o very heavy menstrual bleeding prior to her abdominal myomectomy in 2013. Since then her menses have significantly improved. She now reports regular menses q 1 month with bleeding lasting 5 days. The pt admits to occasional blood clots during her period and she routinely uses heavy pads. The pt states using 4-5 pads/day on heavy days. She has not seen a FIRE TECHNICIAN doctor for approximately 3-4 years. In 2013 the pt had abdominal myomectomy at [facility] (Dr. Murphy). 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 Since she was bleeding heavily at that time , she was transferred to [facility] where uterine aneurism (?artery) embolization was done. The pt was subsequently seen by Dr. Shafer ( server service assistant) because of attempts to conceive. She was treated with LUPRON x 6 months and underwent a hysteroscopic myomectomy at [facility]. She has had no treatment since. 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: Alzheimer's, CVA, Dementia, Migraine, Multiple Sclerosis, Peripheral Neuropathy, Parkinson's, Seizure, Syncope, TIA, Vertigo, Other Cardio/Vascular: Yes: Aneurysm (Uterine??) Pulmonary: Yes: Pulmonary Embolus Gastrointestinal: No: Ascites, Cancer, Constipation, Crohn's Disease, Diverticulitis, Diverticulosis, Esophageal Varices, Gastritis, GERD, GI Bleed, Hemorrhoids, Hiatal Hernia, Inflamatory Bowel Disease, Irritable Bowel Disease, Pancreatitis, Peptic Ulcer Disease, Ulcerative Colitis, Other Hepatobiliary: No: Cirrhosis, Cholelithiasis, Cholecystitis, Choledocholithiasis , Hepatitis A, Hepatitis B, Hepatitis C, Other Renal/: No: Renal Failure, Renal Inusuff, BPH, Cancer, Hematuria, Hemodialysis , Neurogenic Bladder, Renal Calculi, UTI, Other Reproductive: Yes: Fibroids, 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) ...LMP: 02/08/18 (Regular) ...: No ...: 0 ...Para: 0 Heme/Onc: Yes: Anemia Infectious Disease: No: AIDS, C-Diff, Herpes Zoster, HIV, MRSA, STD's, Tuberculosis, VREF, Other Psych: No: Addictions, Anxiety, Bipolar, Depression, Panic, Psychosis, Schizophrenia, Other Musculoskeletal: No: Bursitis, Chronic low back pain, Hemiparesis, Hemiplegia, Osteoarthritis, Paraplegia, Other Rheumatology: No: Fibromyalgia, Gout, Lupus, Rheumatoid Arthritis, Sarcoidosis, Vasculitis, Other ENT: No: Allergic Rhinitis, Sinusitis, Other Endocrine: No: [place]'s Disease, [place]'s Disease, Diabetes Insipidus, Diabetes Mellitus, Hyperparathyroidism, Hyperthyroidism, Hypothyroidism, Osteopenia, SIADH, Other Dermatology: No: Basal Cell, Cellulitis, Eczema, Melanoma, Psoriasis, Squamous Cell, Other - Past Surgical History Additional Surgical History: Laparotomy and Abdominal Myomectomy, Hysteroscopic myomectomy - Alcohol/Substance Use Hx Alcohol Use: No History of Substance Use: reports: None - Smoking History Smoking history: Never smoked - Social History Usual Living Arrangement: Alone ADL: Independent 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 History of Recent Travel: No Home Medications - Allergies Allergies/Adverse Reactions: Allergies Allergy/AdvReac Type Severity Reaction Status Date / Time No Known Allergies Allergy Verified 02/18/18 18:22 - Home Medications Home Medications: Ambulatory Orders NK [No Known Home Medication] 02/18/18 Family Disease History - Family Disease History Family Disease History: Other: Father (Alive: healthy), Mother (: Aortic aneurysm age 62), Brother (4, healthy), Sister (2, healthy), Son (None), Daughter (None) Other Family History: No family history of colorectal cancer or other GI malignancy Review of Systems - Review of Systems Constitutional: reports: No Symptoms Eyes: reports: No Symptoms HENT: reports: No Symptoms Neck: reports: No Symptoms Cardiovascular: reports: Shortness of Breath (improved) Respiratory: reports: SOB (improved) Gastrointestinal: reports: No Symptoms Genitourinary: reports: No Symptoms Breasts: reports: No Symptoms Reported Musculoskeletal: reports: No Symptoms Integumentary: reports: No Symptoms Neurological: reports: No Symptoms Endocrine: reports: No Symptoms Hematology/Lymphatic: reports: No Symptoms Psychiatric: reports: No Symptoms Pain Intensity: 0 Physical Exam-FIRE TECHNICIAN Vital Signs: Vital Signs Temperature 98.3 F 02/20/18 14:00 Pulse Rate 92 H 02/20/18 14:00 Respiratory Rate 18 02/20/18 07:53 Blood Pressure 149/87 02/20/18 14:00 O2 Sat by Pulse Oximetry (%) 97 02/20/18 07:53 Constitutional: Yes: Well Nourished, No Distress, Calm Eyes: Yes: WNL, Conjunctiva Clear, EOM Intact HENT: Yes: WNL, Atraumatic, Normocephalic Neck: Yes: WNL, Supple, Trachea Midline Cardiovascular: Yes: WNL, Regular Rate and Rhythm Respiratory: Yes: WNL, Regular, CTA Bilaterally Gastrointestinal: Yes: Normal Bowel Sounds, Soft, Abdomen, Obese, Palpable Mass (below umbilicus, c/w fibroid uterus) Renal/: Yes: WNL Pelvis: Yes: WNL External Genitalia: Yes: Normal Internal Exam Deferred: No Vaginal Exam: Yes: Normal Cervix: Yes: Normal Uterus: Yes: Enlarged, Firm, Mass (Very large and broad/bulky uterus extending to umbilicus c/w ~20-21 wk gestation-size, very mildly tender) Adnexa: Not Palpable: Left, Right Musculoskeletal: Yes: WNL Extremities: Yes: Other (small varicosities of LE's) Edema: Yes Edema: LLE: 1+, RLE: 1+ Integumentary: Yes: WNL Neurological: Yes: WNL, Alert, Oriented ...Motor Strength: WNL Psychiatric: Yes: WNL, Alert, Oriented Labs: CBC, BMP 02/20/18 12:40 02/19/18 10:20 Problem List - Problems (1) Fibroid uterus Assessment/Plan: Pt with very large fibroids and multiple attempts at treatment in the past. She has heavy menses due to fibroids and will eventually need a hysterectomy. However, she is asymptomatic at this time and no intervention is needed in view of her acute PE and anticoagulation. Pt was advised to f/u in the office. Code(s): D25.9 - LEIOMYOMA OF UTERUS, UNSPECIFIED Qualifiers: Uterine leiomyoma location: unspecified location Qualified Code(s): D25.9 - Leiomyoma of uterus, unspecified (2) Excessive menstruation Assessment/Plan: The pt describes regular menses, although moderately heavy. This is likely made worse by her large fibroids and might be a factor in her anemia. She is not bleeding now and no intervention is necessary at this time. There is a concern of possible heavy bleeding with anticoagulation when she gets her next period. We discussed precautions and that this is something that may need to be addressed in the future. I advised that the pt follow-u p in the office EMILY after discharge. I explained that there may be a role for endometrial ablation or uterine artery embolization to decrease the bleeding, if she has heavy menses and is not a candidate for hysterectomy. Code(s): N92.0 - EXCESSIVE AND FREQUENT MENSTRUATION WITH REGULAR CYCLE Qualifiers: Menorrahagia type: with regular cycle Qualified Code(s): N92.0 - Excessive and frequent menstruation with regular cycle (3) Pulmonary emboli Assessment/Plan: Manage per Pulmonary consult and IM Code(s): I26.99 - OTHER PULMONARY EMBOLISM WITHOUT ACUTE COR PULMONALE Qualifiers: Chronicity: acute (4) Symptomatic anemia Assessment/Plan: Transfuse to Hct >30-32%. Evaluation per Heme. Code(s): D64.9 - ANEMIA, UNSPECIFIED Assessment/Plan I discussed the A/P with Dr. Mtz. 90min with patient/exam, review of all records, communicating with PCP, consultation
[2018-02-21 06:22] LABS: BASO % 0.8 % (0-2.0); EOS % 2.3 % (0-4.5); HEMATOCRIT 28.1 % (32.4-45.2); HEMOGLOBIN 8.1 GM/dL (10.7-15.3); LYMPH % 27.2 % (8-40); MCHC 28.8 g/dl (32.0-36.0); MEAN PLT VOLUME 8.8 fl (7.5-11.1); MONO % 9.2 % (3.8-10.2); NEUT % 60.5 % (42.8-82.8); PLATELET COUNT 356 K/MM3 (134-434); RBC 4.52 M/mm3 (3.60-5.2); RDW 23.1 % (11.6-15.6)
[2018-02-21 06:43] LABS: MCH 17.9 pg (25.7-33.7)
[2018-02-21] MEDS: APIXABAN 5 MG TABLET PO SCH ×2 (09:31→21:43)
--- NOTE | 2018-02-21 12:40 | PN ---
GI Progress Note Subjective: No acute events No abdominal pain Abd US reveals fatty infiltration of the liver Evaluated by underground utility locator - Objective Vital Signs: Vital Signs Temperature 98.0 F 02/21/18 08:18 Pulse Rate 74 02/21/18 08:18 Respiratory Rate 18 02/21/18 08:18 Blood Pressure 123/67 02/21/18 08:18 O2 Sat by Pulse Oximetry (%) 96 02/21/18 08:17 Constitutional: Calm Cardiovascular: Yes: Regular Rate and Rhythm Respiratory: No: CTA Bilaterally Gastrointestinal Inspection: No: Distention ...Auscultate: Yes: Normoactive Bowel Sounds ...Palpate: No: Hepatomegaly, Splenomegaly, Tenderness Edema: No (No LE edema) Labs: CBC, BMP 02/21/18 05:30 02/19/18 10:20 INR, PTT INR 1.15 (0.82-1.09) H 02/18/18 18:50 Problem List - Problems (1) Symptomatic anemia Assessment/Plan: No overt history of or occult evidence of GI bleed When A/C can be held EGD and colonoscopy can be performed for further evaluation Check Celiac serologies Code(s): D64.9 - ANEMIA, UNSPECIFIED
--- NOTE | 2018-02-21 13:03 | PN ---
Progress Note (short form) - Note Progress Note: PULMONARY States breathing is better. No chest pain or palpitations. Vital Signs Period Temp Pulse Resp BP Sys/Chauhan Pulse Ox Last 24 Hr 98.0 F-99.9 F 71-92 18-20 118-149/63-87 96-96 Gen: NAD at rest Heart: RRR Lung: decreased breath sounds at the bases Abd: soft, nontender Ext: no edema CBC, BMP 02/21/18 05:30 02/19/18 10:20 Active Medications Apixaban (Eliquis -) 10 mg PO BID MARIZOL Last Admin: 02/21/18 09:31 Dose: 10 mg Acute Pulmonary Emboli LLE DVT Fibroid Uterus Anemia Elevated LFTs - continue anticoagulation for at least 6 months for unprovoked VTE Problem List - Problems (1) Pulmonary emboli Code(s): I26.99 - OTHER PULMONARY EMBOLISM WITHOUT ACUTE COR PULMONALE Qualifiers: Chronicity: acute (2) Symptomatic anemia Code(s): D64.9 - ANEMIA, UNSPECIFIED
--- NOTE | 2018-02-21 14:00 | PN ---
Physical Exam: SUBJECTIVE: Patient seen and examined at bedside. Feels well. No calf pain. No SOB. No chest pain. OBJECTIVE: Vital Signs Period Temp Pulse Resp BP Sys/Chauhan Pulse Ox Last 24 Hr 98.0 F-99.9 F 71-90 18-20 118-147/63-86 96-96 GENERAL: The patient is awake, alert, and fully oriented, in no acute distress. LUNGS: Breath sounds equal, clear to auscultation bilaterally, no wheezes, no crackles, no accessory muscle use. HEART: Regular rate and rhythm, S1, S2 ABDOMEN: Soft, nontender, nondistended EXTREMITIES: 2+ pulses, warm, well-perfused, no edema. NEUROLOGICAL: Cranial nerves II through XII grossly intact. Normal speech Laboratory Results - last 24 hr 02/18/18 02/20/18 02/21/18 19:25 05:30 05:30 WBC 13.0 H RBC 4.52 Hgb 8.1 L Hct 28.1 L MCV 62.0 L MCH 17.9 L MCHC 28.8 L RDW 23.1 H Plt Count 356 MPV 8.8 Absolute Neuts (auto) 7.8 Neutrophils % 60.5 Lymphocytes % 27.2 Monocytes % 9.2 Eosinophils % 2.3 Basophils % 0.8 Nucleated RBC % 7 H Haptoglobin 144 Crossmatch See Detail Active Medications Generic Name Dose Route Start Last Admin Trade Name Freq PRN Reason Stop Dose Admin Apixaban 10 mg 02/19/18 01:45 02/21/18 09:31 Eliquis - PO 10 mg BID MARIZOL Administration ASSESSMENT/PLAN: 42 year-old female with PMH of uterine fibroids s/p myomectomy. Admitted for LLE DVT and PE. Pulmonary embolism, LLE DVT --unprovoked DVT --hemodynamically stable --will need 6 months anti-coagulation --patient will follow up with Dr. Jensen's office for thrombophilia workup, management of anti-coagulation Acute blood loss anemia Uterine fibroids --Hgb 7.6 on admission, was transfused 1U PRBC, improved to 9.0 --has trended down, today 8.1; will transfuse 1U PRBC today --close outpatient followup with PETROLE[employer] INSPECTOR SUPERVISOR to monitor for anemia DVT prophylaxis: on Eliquis Visit type - Emergency Visit Emergency Visit: Yes ED Registration Date: 02/19/18 Care time: The patient presented to the Emergency Department on the above date and was hospitalized for further evaluation of their emergent condition. - New Patient This patient is new to me today: Yes Date on this admission: 02/28/18 - Critical Care Critical Care patient: No
[2018-02-21 15:34] LABS: URINE APPEARANCE CLEAR; URINE BILIRUBIN NEGATIVE (<2.0 mg/dL); URINE COLOR YELLOW; URINE GLUCOSE (UA) NEGATIVE (NEGATIVE); URINE KETONE NEGATIVE (NEGATIVE); URINE LEUK ESTERASE NEGATIVE (NEGATIVE); URINE NITRITE NEGATIVE (NEGATIVE); URINE PROTEIN NEGATIVE (NEGATIVE); URINE UROBILINOGEN NEGATIVE mg/dL (0.2-1.0)
--- NOTE | 2018-02-21 15:42 | PN ---
Progress Note (short form) - Note Progress Note: pt seen and examined. s/p CT a/p Hgb down trending. She remains asymptomatic Constitutional: Yes: Well Nourished, No Distress, Calm Eyes: Yes: Conjunctiva Clear, EOM Intact HENT: Yes: Atraumatic, Normocephalic Neck: Yes: Supple, Trachea Midline Cardiovascular: Yes: Regular Rate and Rhythm Respiratory: Yes: Regular, CTA Bilaterally Gastrointestinal: Yes: Normal Bowel Sounds, Soft, Abdomen, Obese Breast(s): Yes: WNL Musculoskeletal: Yes: WNL Extremities: Yes: WNL Labs: Last Vital Signs Temp Pulse Resp BP Pulse Ox 98.3 F 92 H 18 149/87 97 02/20/18 14:00 02/20/18 14:00 02/20/18 07:53 02/20/18 14:00 02/20/18 07:53 CBC, BMP 02/20/18 12:40 02/19/18 10:20 Current Medications Generic Name Dose Route Start Last Admin Trade Name Freq PRN Reason Stop Dose Admin Apixaban 10 mg 02/19/18 01:45 02/20/18 09:36 Eliquis - PO 10 mg BID MARIZOL Administration DVT PE anemia (microcytic/hypochromic) fibroids On eliquis 10mb bid x 7 days followed by 5mg bid CT a/p -fibroids DRAFTER CONSTRUCTION f/u appreciated will transfuse today repeat Iron studies at a later period of time GI w/u when able to. Hypercoag w/u as an OP
[2018-02-22 06:54] LABS: BASO % 0.8 % (0-2.0); EOS % 2.5 % (0-4.5); HEMATOCRIT 30.6 % (32.4-45.2); HEMOGLOBIN 9.1 GM/dL (10.7-15.3); LYMPH % 25.6 % (8-40); MCHC 29.8 g/dl (32.0-36.0); MEAN CELL VOLUME 64.3 fl (80-96); MEAN PLT VOLUME 9.3 fl (7.5-11.1); MONO % 9.5 % (3.8-10.2); NEUT % 61.6 % (42.8-82.8); PLATELET COUNT 349 K/MM3 (134-434); RBC 4.76 M/mm3 (3.60-5.2); RDW 26.7 % (11.6-15.6); WHITE BLOOD COUNT 11.2 K/mm3 (4.0-10.0)
[2018-02-22 07:01] LABS: CHLORIDE 107 mmol/L (98-107); POTASSIUM 4.8 mmol/L (3.5-5.1); SODIUM 141 mmol/L (136-145)
[2018-02-22 07:11] LABS: ALBUMIN 2.9 g/dl (3.4-5.0); ALK PHOS 59 U/L (45-117); ANION GAP 8 (8-16); BILIRUBIN,TOTAL 0.7 mg/dL (0.2-1.0); BLOOD UREA NITROGEN 13 mg/dL (7-18); CALCIUM 8.2 mg/dL (8.5-10.1); CO2 26 mmol/L (21-32); CREATININE 0.8 mg/dL (0.55-1.02); GLUCOSE,RANDOM 89 mg/dL (74-106); MAGNESIUM 1.9 mg/dL (1.8-2.4); SGOT/AST 19 U/L (15-37); SGPT/ALT 33 U/L (12-78); TOT PROT 6.7 g/dl (6.4-8.2)
--- NOTE | 2018-02-22 07:11 | PN ---
Physical Exam: SUBJECTIVE: Patient seen and examined OBJECTIVE: Vital Signs Period Temp Pulse Resp BP Sys/Chauhan Pulse Ox Last 24 Hr 98.0 F-98.5 F 73-79 18-20 113-147/56-88 96-99 Laboratory Results - last 24 hr 02/18/18 02/20/18 02/21/18 19:25 05:30 14:45 Haptoglobin 144 Urine Color Yellow Urine Appearance Clear Urine pH 5.0 Ur Specific [place] 1.021 Urine Protein Negative Urine Glucose (UA) Negative Urine Ketones Negative Urine Blood Negative Urine Nitrite Negative Urine Bilirubin Negative Urine Urobilinogen Negative Ur Leukocyte Esterase Negative Blood Type A POSITIVE Antibody Screen Negative Crossmatch See Detail Active Medications Generic Name Dose Route Start Last Admin Trade Name Freq PRN Reason Stop Dose Admin Apixaban 10 mg 02/19/18 01:45 02/21/18 21:43 Eliquis - PO 10 mg BID MARIZOL Administration ASSESSMENT/PLAN:
[2018-02-22 08:18] LABS: MCH 19.2 pg (25.7-33.7)
[2018-02-22 09:45] LABS: ANISOCYTOSIS 3+; MACROCYTOSIS 1+; PLATELET ESTIMATE NORMAL; TEAR DROP CELLS 1+
[2018-02-22] MEDS: APIXABAN 5 MG TABLET PO SCH ×2 (09:51→18:27)
--- NOTE | 2018-02-22 10:25 | PN ---
Progress Note, Physician History of Present Illness: pulmonary alert,nad,-sob,-cp - Current Medication List Current Medications: Active Medications Apixaban (Eliquis -) 10 mg PO BID MARIZOL Last Admin: 02/22/18 09:51 Dose: 10 mg - Objective Vital Signs: Vital Signs Temperature 98.9 F 02/22/18 09:17 Pulse Rate 87 02/22/18 09:17 Respiratory Rate 17 02/22/18 09:17 Blood Pressure 121/89 02/22/18 09:17 O2 Sat by Pulse Oximetry (%) 96 02/22/18 09:00 Constitutional: Yes: Well Nourished, Calm Eyes: Yes: WNL HENT: Yes: WNL Neck: Yes: WNL Cardiovascular: Yes: Regular Rate and Rhythm, S1, S2 Respiratory: Yes: CTA Bilaterally Gastrointestinal: Yes: Normal Bowel Sounds, Soft Extremities: Yes: WNL Edema: Yes Labs: CBC, BMP 02/22/18 05:30 02/22/18 05:30 INR, PTT INR 1.15 (0.82-1.09) H 02/18/18 18:50 Assessment/Plan Problem List - Problems (1) Pulmonary emboli Code(s): I26.99 - OTHER PULMONARY EMBOLISM WITHOUT ACUTE COR PULMONALE (2) Symptomatic anemia Code(s): D64.9 - ANEMIA, UNSPECIFIED 3 DVT LLE Assessment/Plan Acute Pulmonary Emboli LLE DVT Anemia - O2 as needed - eliquis - will need to anticoagulate for at least 6 months for unprovoked VTE - w/u for hypercoagulable stated as outpatient - monitor h+h - normal tranfusion threshold DR FORREST
--- NOTE | 2018-02-22 16:32 | PN ---
Progress Note (short form) - Note Progress Note: Patient seen and examined Denies chest pains or significant SOB No obvious etiology for P.E and no family history of PE Appears to be unprovoked PE Currently on a/c with eliquis Last Vital Signs Temp Pulse Resp BP Pulse Ox 98.2 F 74 18 138/73 96 02/22/18 14:15 02/22/18 14:15 02/22/18 14:15 02/22/18 14:15 02/22/18 09:00 HEENT: [place], EOM Intact Cor: RSR, No murmurs, No gallops Lungs: Clear to P&A Abd: Soft, Normal bowel sounds, No organomegaly Ext:No significant edema, no calf tenderness or Margarita's Skin: No rashes, Integument intact CBC, BMP 02/22/18 05:30 02/22/18 05:30 Current Medications Generic Name Dose Route Start Last Admin Trade Name Freq PRN Reason Stop Dose Admin Apixaban 10 mg 02/19/18 01:45 02/22/18 09:51 Eliquis - PO 10 mg BID MARIZOL Administration Impression: Unprovoked PE Will need thrombophilia work up as out patient Defer any surgical or invasive intervention at this time Age appropriate malignancy work up
[2018-02-22 18:01] VITALS: BP 120/79; PULSE 73; TEMP 98.3
[2018-02-26 00:08] LABS: GLIADIN ANTIBODY IGA 4 units (0-19); GLIADIN ANTIBODY IGG 3 units (0-19); TRANSGLUTAMINASE IGG 2 U/mL (0-5)
--- NOTE | 2018-02-28 16:52 | DS ---
Physical Exam: SUBJECTIVE: Patient seen and examined OBJECTIVE: Vital Signs Temperature 98.3 F 02/22/18 17:59 Pulse Rate 73 02/22/18 17:59 Respiratory Rate 18 02/22/18 17:59 Blood Pressure 120/79 02/22/18 17:59 O2 Sat by Pulse Oximetry (%) 96 02/22/18 09:00 PHYSICAL EXAM GENERAL: The patient is awake, alert, and fully oriented, in no acute distress. LUNGS: Breath sounds equal, clear to auscultation bilaterally, no wheezes, no crackles, no accessory muscle use. HEART: Regular rate and rhythm, S1, S2 ABDOMEN: Soft, nontender, nondistended EXTREMITIES: 2+ pulses, warm, well-perfused, no edema. NEUROLOGICAL: Cranial nerves II through XII grossly intact. Normal speech LABS CBCD WBC 11.2 K/mm3 (4.0-10.0) H 02/22/18 05:30 RBC 4.76 M/mm3 (3.60-5.2) 02/22/18 05:30 Hgb 9.1 GM/dL (10.7-15.3) L D 02/22/18 05:30 Hct 30.6 % (32.4-45.2) L 02/22/18 05:30 MCV 64.3 fl (80-96) L 02/22/18 05:30 MCHC 29.8 g/dl (32.0-36.0) L 02/22/18 05:30 RDW 26.7 % (11.6-15.6) H 02/22/18 05:30 Plt Count 349 K/MM3 (134-434) 02/22/18 05:30 MPV 9.3 fl (7.5-11.1) 02/22/18 05:30 CMP Sodium 141 mmol/L (136-145) 02/22/18 05:30 Potassium 4.8 mmol/L (3.5-5.1) 02/22/18 05:30 Chloride 107 mmol/L (98-107) 02/22/18 05:30 Carbon Dioxide 26 mmol/L (21-32) 02/22/18 05:30 Anion Gap 8 (8-16) 02/22/18 05:30 BUN 13 mg/dL (7-18) 02/22/18 05:30 Creatinine 0.8 mg/dL (0.55-1.02) 02/22/18 05:30 Creat Clearance w eGFR > 60 (>60) 02/22/18 05:30 Calcium 8.2 mg/dL (8.5-10.1) L 02/22/18 05:30 Total Bilirubin 0.7 mg/dL (0.2-1.0) 02/22/18 05:30 AST 19 U/L (15-37) 02/22/18 05:30 ALT 33 U/L (12-78) 02/22/18 05:30 Alkaline Phosphatase 59 U/L (45-117) 02/22/18 05:30 Total Protein 6.7 g/dl (6.4-8.2) 02/22/18 05:30 Albumin 2.9 g/dl (3.4-5.0) L 02/22/18 05:30 HOSPITAL COURSE: Date of Admission:02/19/18 Date of Discharge: 02/22/18 Pre hospital course Patient is a 42 year old woman with pmh of fibroids (s/p myomectomy) who presents for evaluation of five day history of shortness of breath. She reports dyspnea on exertion. She went to an Urgent Care Center and was found to have H/ H of 7.3/26 and was sent to the ER. She denies any vaginal bleeding, blood in stool or melena. Patient had previously taken iron supplements however has stopped taking them electively. She's never had an EGD/colonoscopy, is not on control pills and does is not trying to have children. LMP February 08, 2018. Initial hospital course Severe low MCV anemia - Features consistent with iron deficiency anemia likely due to menorrhagia associated with fibroids. While she has symptoms of anemia, the suddenness of SOB and cough 5 days ago compels us to rule out pulmonary embolism. Will get CTPA. She has no infiltrates on CXR. Her EKG shows nonspecific T wave inversion V1 and V2 - will get follow up EKG and troponin to rule out ACS and monitor her on telemetry. The ER has already started transfusion of PRBC. Subsequently she will need IV Venofer 500 mg x 2 doses and pelvic sonogram. STAFF PSYCHOLOGIST and GI consults. Stool sent for occult blood is pending and we will get iron studies. Subsequent hospital course 02/19 CTA showed bilateral emboli in the upper and lower lobes. 02/19 US BLE: thrombus within the popliteal vein 02/21 CTAP: markedly enlarged and lobulated fibroid uterus Patient was transfused 1U PRBC on 02/19 and 1U PRBC on 02/21. Hgb 7.6 on admission , 9.1 at time of discharge. Patient discharged on Eliquis. She will remain on anticoagulation for six months due to unprovoked DVT. She will follow up with Dr. Jensen's office and with her STAFF PSYCHOLOGIST. Minutes to complete discharge: 35 Discharge Summary Reason For Visit: SECONDARY ANEMIA Condition: Improved - Instructions Diet, Activity, Other Instructions: Two prescriptions have been sent to your pharmacy, one for Eliquis 10mg twice a day (take this prescription first), and one for 5mg twice a day (stay on this middle or intermediate school principal). You should follow up with Dr. Shafer, your fertility and change manager, on Sunday or Sunday of next week. You should have your blood counts checked. You should also follow up with Dr. Jensen, a industrial maintenance millwright. He has an office in the hospital on the first floor. . Please call his office on Sunday and make an appointment. Dr. Jensen will give you refill prescriptions for Eliquis. Return to the emergency department for any new or worsening symptoms. Referrals: Lazara Crow MD [Primary Care Provider] - Disposition: HOME - Home Medications Comprehensive Discharge Medication List: Ambulatory Orders Apixaban [Eliquis -] 10 mg PO BID #6 tablet 02/22/18 Apixaban [Eliquis] 5 mg PO BID #60 tablet 02/22/18 This patient is new to me today: No Emergency Visit: Yes ED Registration Date: 02/19/18 Care time: The patient presented to the Emergency Department on the above date and was hospitalized for further evaluation of their emergent condition. Critical Care patient: No - Discharge Referral Referred to [facility] No
== END 2018-02-22 18:33 | disposition home or self-care (01) | DRG 299 ==
LOC: JER 18:04 → JERBED 21:34 → INTOOBSV 21:34 → UNDOADMOB 21:34 → JERBED 02-19 00:32 → J7W 02-19 01:25 → OBSVTOIN 02-19 02:05 → J4W 02-19 07:04
PROVIDERS: ADMIT Internal Medicine; ATTEND Nurse Practitioner Acute Care
PROC: 30233N1 Transfusion of Nonautologous Red Blood Cells into Peripheral Vein, Percutaneous Approach (ICD-10-PCS; principal; 2018-02-18)
DX: I82.492 Acute embolism and thrombosis of other specified deep vein of left lower extremity (principal); I26.99 Other pulmonary embolism without acute cor pulmonale; N92.0 Excessive and frequent menstruation with regular cycle; D25.9 Leiomyoma of uterus, unspecified; R00.2 Palpitations; E66.9 Obesity, unspecified; D50.9 Iron deficiency anemia, unspecified; Z68.39 Body mass index [BMI] 39.0-39.9, adult
CPT/HCPCS: 36415; 36430; 36511; 71046-TC-FY; 71275-TC; 74176-TC; 76700-TC; 76830-TC; 76856-TC; 80053; 81003; 82272; 82550; 82728; 82784; 83010; 83516; 83540; 83550; 83615; 83735; 84100; 84155; 84165; 84484; 84703; 85025; 85027; 85044; 85610; 86334; 86922; 87040; 87086; 93005; 93010; 93306-TC; 93970-TC; 99284-25; G0378; J1756; P9038; P9058

== ENCOUNTER 2020-04-26 05:02 | Day surgery (SDC) | payer BC ==
[2020-04-22 16:31] VITALS: BMI 39.4
[2020-04-26] MEDS ORDERED: MIDAZOLAM HCL 2 MG/2 ML SINGLE DOSE VIAL ONE (08:28)
[2020-04-26] MEDS ORDERED: PROPOFOL 20 ML ONE ×2 (08:28→11:17)
--- NOTE | 2020-04-26 09:31 | HP ---
History & Physical Update - History History: No Change (menorrhaghia, fibroid uterus) - Physical Physical: No Change - Assessment Assessment: No Change - Plan Plan: No Change (Hysteroscopy, endometrial ablation, D&C)
[2020-04-26] MEDS ORDERED: ceFAZolin SODIUM 1 GM VIAL ONE ×2 (09:37→11:19)
[2020-04-26] MEDS ORDERED: ceFAZolin SODIUM 1 GM VIAL IVPB ONE (09:40)
--- NOTE | 2020-04-26 10:33 | OP ---
Operative Note - Note: Operative Date: 04/26/20 Pre-Operative Diagnosis: Menorrhagia, fibroid uterus Operation: Hysteroscopy, Thermal Endometrial ablation (HTA) Findings: Large fibroid uterus, endometrial cavity sounded to 11cm, endometrial cavity is irregular Post-Operative Diagnosis: Same as Pre-op Surgeon: Audie Yanes Anesthesiologist/EQUIPMENT OR MACHINERY CLEANER: Jasson Mrechant Anesthesia: General Estimated Blood Loss (mls): 3 Blood Volume Replaced (mls): 0 Fluid Volume Replaced (mls): 400 Operative Report Dictated: Yes
[2020-04-26] MEDS ORDERED: ONDANSETRON 4 MG/2 ML VIAL IVPUSH PRN (10:53)
[2020-04-26] MEDS ORDERED: oxyCODONE HCL 5 MG TABLET PO PRN ×2 (10:53)
[2020-04-26] MEDS ORDERED: LACTATED RINGERS SOLUTION 1,000 ML IV SCH (11:00)
--- NOTE | 2020-04-26 11:55 | OP ---
DATE OF OPERATION: 04/26/2020 PREOPERATIVE DIAGNOSIS: Fibroid uterus, menorrhagia, anemia. POSTOPERATIVE DIAGNOSIS: Fibroid uterus, menorrhagia, anemia. PROCEDURE: Hysteroscopy, thermal endometrial ablation ([id number]). SURGEON: Ayesha Christopher MD FOOD MANAGER: None. ANESTHESIOLOGIST: Jasson Merchant MD ANESTHESIA: General. COMPLICATIONS: None. ESTIMATED BLOOD LOSS: 3 mL IV FLUIDS: 400 mL PATHOLOGY: None. FINDINGS: Examination under anesthesia revealed a large fibroid uterus. Hysteroscopy revealed an irregular enlarged endometrial cavity that was sounded to 11 cm. PROCEDURE: The patient was met preoperatively. Risks, benefits and alternatives of surgery were discussed in details. All questions were answered. The consent form was reviewed and discussed. The patient verbalized her understanding and requested to proceed with the surgery. The patient was brought to the OR with the IV running. She was placed on the surgical table in the supine position. The general anesthesia was achieved without difficulty. The patient was then placed in a dorsal lithotomy position using adjustable Marcial stirrups. She was examined under anesthesia with the findings as described above. The patient was then prepped and draped in the usual sterile fashion. A timeout procedure was conducted as per standard protocol. The surgeon then proceeded with the operation. A weighted speculum was introduced inside the vagina with good visualization of the cervix. The cervix was grasped with a single-tooth tenaculum. The cervical os was dilated to accommodate a size 23 Rodriguez dilator. A hysteroscopy was then performed with the findings as described above. Once the cervical seal was confirmed, an endometrial ablation was initiated. A thermal endometrial ablation was performed without complications and under direct visualization. The patient tolerated the procedure well. The procedure was completed without incident. The hysteroscope was then removed. Once again good hemostasis was confirmed. All of the instruments were removed from the patient. Sponge, lap, instrument counts were correct. The patient was returned to supine position. She was transferred to recovery room in stable condition and awake. AYESHA CHRISTOPHER M.D. [id number]
[2020-04-26 14:14] VITALS: BP 133/77; PULSE 63; TEMP 97.8
== END 2020-04-26 14:16 | disposition home or self-care (01) ==
LOC: JASU-SURG 05:02
PROVIDERS: ATTEND Obstetrics & Gynecology
PROC: 0U5B8ZZ Destruction of Endometrium, Via Natural or Artificial Opening Endoscopic (ICD-10-PCS; principal; 2020-04-26 09:30)
DX: D25.9 Leiomyoma of uterus, unspecified (principal); N92.0 Excessive and frequent menstruation with regular cycle; D64.9 Anemia, unspecified
CPT/HCPCS: 36415; 84703; 94760